=== PATIENT | male | born 1950 | race Caucasian/White ===

== ENCOUNTER 2017-01-08 16:51 | Observation (INO) | payer MEDICARE, OTHER ==
[2017-01-08 17:20] VITALS: BP 133/69
[2017-01-09 00:12] VITALS: BP 121/62
[2017-01-09 01:32] VITALS: BP 121/62
[2017-01-09 03:00] VITALS: BP 118/56
[2017-01-09 06:35] VITALS: BP 99/43
[2017-01-09] MEDS ORDERED: NITRO-DUR0.2 MG/PAT TD (08:27)
== END 2017-01-09 08:59 | disposition home or self-care (01) ==
LOC: ED 16:51 → MED/SURG 23:45
PROVIDERS: ADMIT Nurse Practitioner Family
DX: R07.89 Other chest pain (principal); I20.8 Other forms of angina pectoris; D50.9 Iron deficiency anemia, unspecified
CPT/HCPCS: G0378; J1650; J7030

== ENCOUNTER → 2018-10-24 | Outpatient (CLI) | payer MEDICARE, OTHER ==
[~2018-10-24] MED LIST: NITRO-DUR0.2 MG/PAT TD
== END ==
LOC: LAB 16:40
DX: J02.9 Acute pharyngitis, unspecified (principal)